=== PATIENT | male | born 2000 | race Caucasian/White ===

== ENCOUNTER 2024-03-04 13:38 | Emergency (ER) | payer BC, SELFPAY ==
[2024-03-04 14:06] VITALS: BP 140/84; PULSE 94; RESP 18; TEMP 36.5; O2SAT 100
--- NOTE | 2024-03-04 14:34 | ED_ITS ---
HPI - Abdominal Pain General Chief Complaint: Abdominal Pain Stated Complaint: Abdominal/Stomach Pain Time Seen by Provider: 03/04/24 14:34 Source: patient and RN notes reviewed Mode of arrival: ambulatory Limitations: no limitations History of Present Illness HPI narrative: [age] year old male presented for complaint of constipation and abdominal bloating. LBM 2 days ago, he states he has been using fleets enemas and Dulcolax which induced the BM, but now without results for the last couple of days. Denies rectal bleeding, swelling, n/v/d. Denies hematochezia or melena. Increased fruits and water intake. Related Data Home Medications ?Medication ?Instructions ?Recorded ?Confirmed ?Last Taken ?Type sertraline 100 mg tablet 200 mg PO Q24H 03/04/24 03/04/24 Unknown History Allergies Allergy/AdvReac Type Severity Reaction Status Date / Time No Known Allergies Allergy Verified 03/04/24 14:17 Review of Systems Review of Systems: CONSTITUTIONAL: Denies body aches, fever, chills CARDIOVASCULAR: Denies chest pain, palpitations, or edema. RESPIRATORY: Denies cough or dyspnea. GASTROINTESTINAL: Endorses abdominal bloating; Denies nausea, vomiting, diarrhea, hematochezia, melena, hematemesis GENITOURINARY: Denies dysuria, hematuria, or CVA tenderness. MUSCULOSKELETAL: Denies back pain, joint pain, or myalgia. NEUROLOGIC: Denies headache, numbness, tingling, or weakness. All systems reviewed & are unremarkable except as noted in HPI and below PMFSH Comments At time of signature, I have reviewed and agree with nursing past medical, surgical, social and family history unless otherwise noted. Please see nursing chart for further information. There is no relevant family history pertinent to the presenting complaint Exam Narrative: GENERAL: Well-appearing, and in no acute distress. EYES: EOMI. Conjunctivae normal. ENT: Mucous membranes pink and moist. CHEST: No respiratory distress. Clear to auscultation. HEART: Regular rate and rhythm. No murmur appreciated. Normal peripheral pulses. ABDOMEN: abd soft, nondistended, normal active bowel sounds. Nontender abdomen: No guarding, rebound tenderness, asymmetry EXTREMITIES: Normal range of motion. SKIN: Warm, dry, no rash. Capillary refill normal. Normal skin turgor. NEURO: No focal deficits. Alert and oriented x3. PSYCH: Normal affect. Course Course Emergency Course: Patient is aware of diagnosis, understands and agrees to treatment plan. Anticipatory guidance given. Patient agrees to follow-up as directed and is aware of reasons to seek care at the emergency department. Portions of this record may have been created with voice recognition software Level of Care: Express Care Visit Vital Signs Vital signs: Vital Signs Temperature 97.7 F 03/04/24 14:06 Pulse Rate 94 03/04/24 14:06 Respiratory Rate 18 03/04/24 14:06 Blood Pressure 140/84 03/04/24 14:06 Pulse Oximetry 100 03/04/24 14:06 Oxygen Delivery Room Air 03/04/24 14:06 Temperature 97.7 F 03/04/24 14:06 Pulse Rate 94 03/04/24 14:06 Respiratory Rate 18 03/04/24 14:06 Blood Pressure 140/84 03/04/24 14:06 Pulse Oximetry 100 03/04/24 14:06 Oxygen Delivery Room Air 03/04/24 14:06 MDM - Abdominal Pain MDM Narrative Medical decision making narrative: Discussed physical exam findings c/w constipation. Pt declined rectal exam at this time. Advised supportive measures and signs/symptoms to go to the ER. Pt is appropriate for outpt treatment and f/u. Differential Diagnosis Differential diagnosis: Likely abdominal pain, constipation, diverticulitis, gastroenteritis and small bowel obstruction Discharge Plan Discharge Clinical Impression: Abdominal cramping Patient Disposition: Home, Self-Care Condition: Stable Instructions: Antibiotic Form, Constipation (ED), High Fiber Diet (ED) Additional Instructions: laxative options: Take Senokot or Dulcolax according to package directions or Miralax 1 capful daily until bowel movements are regular. or Milk of Magnesia according to package directions or Magnesium citrate according to bottle directions To maintain soft stools after constipation is relieved, you may take Colace 2 times per day. Maintain fluid intake 6-8 glasses per day. Increase fibers (fruits and vegetables) in your diet. Decrease or eliminate intake of fast food and junk foods. Try to walk several times a day You can drink coffee Do not use laxatives daily Follow up with your primary care provider this week Go to the ER for worsening symptoms or concerns Patient Language: Portuguese Prescriptions: New lactulose 10 gram/15 mL solution 20 g PO DAILY PRN (Reason: constipation) Qty: 60 0RF No Action sertraline 100 mg tablet 200 mg PO Q24H Follow-up/Referrals: PHYSICIAN,[facility] [employer] [Primary Care Provider] - Lucas Emmanuel MD [Physician] - Stand Alone Forms: Work/School Release IP
== END 2024-03-04 15:00 | disposition home or self-care (01) ==
PROVIDERS: Emergency Provider Nurse Practitioner Family
DX: R10.9 Unspecified abdominal pain (principal)
CPT/HCPCS: 99203; G0463

== ENCOUNTER 2024-03-15 12:50 | Emergency (ER) | payer BC, SELFPAY ==
[2024-03-15 13:04] VITALS: BP 129/86; PULSE 89; RESP 16; TEMP 36.3; O2SAT 100
--- NOTE | 2024-03-15 13:13 | ED_ITS ---
HPI - Male Genitourinary General Chief complaint: Urogenital-Male Stated complaint: blood in stool Time Seen by Provider: 03/15/24 12:51 Source: patient Mode of arrival: ambulatory Limitations: no limitations History of Present Illness HPI Narrative: Patient is a 23-year-old who presents concerns stroke patient was seen here 03/04 for constipation. Patient has since been able to use the bathroom. Patient states he gave himself an enema and only had fluid and small pieces fecal matter, for a few days. Patient states yesterday morning he was able to use the bathroom but then had small mucousy piece of stool had pink/red tint and toilet. Denies bright red blood on toilet paper when wiping or and toilet water. Patient states he had large normal bowel movement today and had blood-tinged mucus toilet paper when wiping. Still denies any red in stool or toilet water changing color. Patient also reports some burning with urination the last 2 days. Denies any fever, chills, nausea vomiting, diarrhea, low pain. Denies any concern for STI Related Data Home Medications ?Medication ?Instructions ?Recorded ?Confirmed ?Last Taken ?Type sertraline 100 mg tablet 200 mg PO Q24H 03/04/24 03/15/24 Unknown History Allergies Allergy/AdvReac Type Severity Reaction Status Date / Time No Known Allergies Allergy Verified 03/15/24 13:13 Review of Systems Review of Systems: All systems reviewed & are unremarkable except as noted in HPI and below Constitutional: Constitutional: Denies body ache(s), Denies chills, Denies fatigue, Denies fever(s), Denies headache(s), Denies malaise and Denies weakness Eyes: Eyes: Denies blurry vision, Denies irritation and Denies loss of vision ENT: Denies otalgia, Denies headache(s), Denies nasal discharge, Denies sinus pain and Denies sore throat Cardiovascular: Cardiovascular: Denies chest pain, Denies irregular heart rhythm and Denies dyspnea Respiratory: Respiratory: Denies dyspnea Gastrointestinal: Gastrointestinal: Denies abdominal pain, Denies melena, Denies hematochezia, Denies diarrhea, Denies nausea, Denies vomiting and Reports other (mucous in stool) Genitourinary: Genitourinary: Reports dysuria Musculoskeletal: Musculoskeletal: Denies back pain, Denies myalgias and Denies arthralgias Integumentary/Breasts: Skin/Breast: Denies pruritus and Denies rash Neurologic: Denies headache(s), Denies loss of vision and Denies weakness Psychiatric: Psychiatric: Reports no additional psychiatric complaints Endocrine: Endocrine: Denies fatigue PMFSH Comments At time of signature, agree with nursing past medical, surgical, social and family history. There is no relevant family history pertinent to the presenting complaint. Exam Const: General: cooperative, healthy appearing, comfortable, no acute distress and well nourished Nutritional Appearance: well nourished Orientat ion/consciousness: patient oriented x3 Limitations: no limitations HENMT: Head: normal to inspection, normocephalic and atraumatic Ears: hearing grossly normal bilaterally and external ears normal Face/Nose/Sinus: Normal external nose present, normal facial exam and face symmetric Face and sinus: normal facial exam and face symmetric Mouth: Yes lip normal Eyes: General: appearance normal, both eyes and all related structures Alignment and Position: alignment normal and position normal Periorbital: periorbital findings normal Eyelids: eyelids normal Pupils: Equal, round and reactive pupils present EOM: EOMs intact bilaterally Neck: Neck: normal visual inspection, full ROM and supple Chest: Chest palpation & inspection: normal inspection of the chest Resp: Effort & Inspection: normal respiratory effort and able to speak in complete sentences Auscultation: clear to auscultation bilaterally Cardio: Rate: regular rate Rhythm: regular rhythm Heart sounds: S1 normal heart sound present and S2 normal heart sound present GI: Inspection: normal to inspection GI Palp: No abdominal tenderness, Yes Soft to palpation, No Tenderness to palpation present (GI) and No Guarding due to palpation present (GI) Auscultation: normal bowel sounds : General: Yes no CVA tenderness Skin: General skin exam: normal color and no rashes or lesions noted Neuro: General: patient oriented x3 and moves all extremities Cranial nerves: Yes Equal, round and reactive pupils present Speech: normal speech Gait exam (Neuro): Normal gait present Extrem: General: normal to inspection, full ROM and no edema Psych: Appearance: grossly normal and well kempt Mental Status: mental status grossly normal Speech and movement: Normal speech and movement present Affect: normal affect Attitude: cooperative Thought process: Normal thought process present Course Course Emergency Course: Patient is aware of diagnosis, understands and agrees to treatment plan. Anticipatory guidance given. Patient agrees to follow-up as directed and is aware of reasons to seek care at the emergency department. Portions of this record may have been created with voice recognition software Level of Care: Express Care Visit Vital Signs Vital signs: Vital Signs Temperature 36.3 C L 03/15/24 13:04 Pulse Rate 89 03/15/24 13:04 Respiratory Rate 16 03/15/24 13:04 Blood Pressure 129/86 03/15/24 13:04 Pulse Oximetry 100 03/15/24 13:04 Temperature 36.3 C L 03/15/24 13:04 Pulse Rate 89 03/15/24 13:04 Respiratory Rate 16 03/15/24 13:04 Blood Pressure 129/86 03/15/24 13:04 Pulse Oximetry 100 03/15/24 13:04 Reviewed MDM - Male Genitourinary MDM Narrative Medical decision making narrative: Discussed in depth about when blood in stool is concerning. Patient denies that he has ever had right red blood in stool, when he wipes or the toilet water ever turning red. Patient states he has had increased fruit intake and is now able to go regularly. Pt well hydrated appearing, in no respiratory distress, hemodynamically stable. Recommend supportive care. The patient is stable at time of discharge the clinical impression was discussed and the patient was given the opportunity to ask questions, which were addressed as completely as possible given the information available at present. Anticipatory guidance and return to care precautions were discussed and the importance of primary care follow-up was stressed and encouraged. The patient voiced understanding of the plan, indications to return, and the need for follow-up. Exam findings show no acute concerns or changes Patient is appropriate for outpatient treatment and follow-up. Differential Diagnosis Differential diagnosis: Likely urinary tract infection, epididymitis, prostatitis and other (Constipation, hemorrhoid) Medical Records Attestation: I reviewed the patient's medical records. Lab Data Attestation: I reviewed the patient's lab results. Discharge Plan Discharge Clinical Impression: Mucus in stool Patient Disposition: Home, Self-Care Condition: Stable Instructions: High Fiber Diet (ED) Additional Instructions: Also take Miralax 1 capful daily as needed to keep bowel movements are regular. To maintain soft stools after constipation is releived, you may take Colace 100- 200 mg up to three times per day. Maintain fluid intake 6-8 glasses per day. Please increase fibers (fruits and vegetables) in your diet, or use bulk fiber supplements. Decrease or eliminate intake of fast food and junk foods. If you have any bright red blood in stool, change in toilet water to bright red or any black tarry stools go to the emergency department Patient Language: Ugandan Prescriptions: No Action sertraline 100 mg tablet 200 mg PO Q24H lactulose 10 gram/15 mL solution 20 g PO DAILY PRN (Reason: constipation) Qty: 60 0RF Follow-up/Referrals: Pedro Pablo,Sandhya Abernathy [Other] - 3 Days Stand Alone Forms: Work/School Release IP Time of Disposition: 13:23
[2024-03-15 13:21] LABS: EDUAAPPEAR Clear; EDUABILI Negative (Negative); EDUABLOOD Negative (Negative); EDUACOLOR1 Yellow; EDUAGLUCOSE Negative (Negative); EDUAKETONE Negative (Negative); EDUALEUKO Negative (Negative); EDUANITRATE Negative (Negative); EDUAPROTEIN Negative (Negative); EDUAUROBILI 0.2
== END 2024-03-15 13:34 | disposition home or self-care (01) ==
PROVIDERS: Emergency Provider Nurse Practitioner Family
DX: R19.5 Other fecal abnormalities (principal)
CPT/HCPCS: 81003; 99212; G0463